=== PATIENT | male | born 1990 | race Caucasian/White ===

== ENCOUNTER 2020-10-09 09:12 | Emergency (ER) | payer SELFPAY ==
[~2020-10-09] VITALS: Ht 165.1 cm; Wt 79.5 kg
[~2020-10-09 09:12] MED LIST: FLONASE NASAL50 MCG
[2020-10-09 11:11] LABS: HEMATOCRIT 41.8 % (39.0-50.0); HEMOGLOBIN 14.6 g/dl (14.0-18.0); MEAN CORPUSCULAR HGB 29.4 pG CALC (26.0-32.0); MEAN CORPUSCULAR HGB CONC 34.9 g/dL CAL (32.0-36.0); NEUT# 3.74 thou/uL (1.82-7.42); RED BLOOD COUNT 4.97 mill/uL (4.70-6.10); RED CELL DISTRI WIDTH 11.6 % (11.5-15.5)
[2020-10-09 11:20] LABS: MEAN CELL VOLUME 84.1 fL CALC (80.0-100.0)
[2020-10-09 11:44] LABS: ALBUMIN 4.5 g/dL (3.2-5.0); ANION GAP 11 (6-22 (CALC)); BILIRUBIN, TOTAL 0.8 mg/dL (0.0-1.4); BUN 15 mg/dL (9-20); BUN/CREATININE RATIO 17 (12-20 (CALC)); CARBON DIOXIDE 28 mmol/l (22-30); CHLORIDE 103 mmol/l (95-108); CREATININE 0.9 mg/dL (0.7-1.3); GFR > 60 ML/MIN (>=60 (CALC)); GFR FOR AFR.AMER. > 60 ML/MIN (>=60 (CALC)); LIPASE 72 u/l (23-300); SGOT/AST 31 u/l (17-59); SODIUM 138 mmol/l (137-146); TOTAL PROTEIN 7.3 g/dL (6.3-8.2)
[2020-10-09 11:46] LABS: ALKALINE PHOSPHATASE 52 u/l (38-126)
[2020-10-09] MEDS ORDERED: PROTONIX40 MG PO (14:36)
[2020-10-09 14:39] VITALS: BP 127/72
== END 2020-10-09 14:47 | disposition home or self-care (01) | DRG 313 ==
LOC: ED 09:12
DX: R07.89 Other chest pain (principal)